=== PATIENT | female | born 1995 | race Caucasian/White ===

== ENCOUNTER 2017-11-30 06:05 | Inpatient (IN) ==
--- OUTSIDE RECORDS SUMMARY | 2017-11-30 06:14 | External Medical Summary | Continuity of Care Document ---
:1995 Author Organization [facility] Address [address] [place], [place] [id number] Phone Care Team Providers Name Role Phone Ander Mitchell MD Unavailable Unavailable Allergies, Adverse Reactions, Alerts Substance Reaction Severity Status No Known Drug Allergies Unknown Active Medications Medication Instructions Dosage Effective Dates Status Comments (start - stop) Fioricet 50 mg-300 take 1 - 2 capsule Not Available - Active mg-40 mg capsule by oral route every 4 hours as needed not to exceed 6 capsules per 24hrs Problems Condition Effective Dates (start - stop) Clinical Status Encounter for suprvsn of normal - , second trimester 26 weeks gestation of - Maternal care for excess growth, - second tri, unsp Encounter for suprvsn of normal - , second trimester 15 weeks gestation of - Maternal care for excess growth, - second tri, unsp 18 weeks gestation of - Abnormal glucose complicating - 28 weeks gestation of - Encounter for suprvsn of normal - , second trimester 22 weeks gestation of - Encounter for suprvsn of normal - , second trimester 18 weeks gestation of - Migraines Active Procedures Procedure Date Immuniz admnin, 1 vac, sngl/combo 19 Yrs + Flu Vaccine - Quadrivalent OB Visit No Charge Results Test Name Date and Time Measure Units Reference Range Abnormal Flag Comments Panel Description: Glucose [Mass/volume] in Serum or Plasma --1 hour post 50 g glucose PO GLUCOSE, 164 mg/dL <140 H One hour value of > GESTATIONAL SCREEN 15:42:00 tq=300 mg/dL indicatesthe (50G)-140 CUTOFF need for a diagnostic 75 g dose 2-hour or100 g dose 3-hour oral glucose tolerance test;patient fasting is required.Test performed at [facility] [address] [id number]: MANFRED ARANGO DO,MPH Panel Description: HEMOGLOBIN + HEMATOCRIT HEMOGLOBIN 15:42:00 11.7 g/dL 11.7-15.5 N HEMATOCRIT 15:42:00 34.5 % 35.0-45.0 L REPORT COMMENT:FASTING :NOTest performed at [facility] [address] [id number]: MANFRED ARANGO DO,MPH Advance Directives Directive Yes / No Effective Date File Name Unknown Encounters Encounter Practice Location Reason(s) Diagnoses Date Provider Care Team Description For Visit Members Katie Benitez Abnormal Oct-2 Hutton Referring In Womens glucose 6-201 Krista. Provider: Elisha IBARRA, complicating 7 [address], [place], weeks Center 700 [id number], gestation of Inocente Watt [facility] 120, Center tel: Emmanuel [facility] 120, [address] [place], [id number] [place], , [place]. [id number]. tel: tel: [phone] Katie Benitez Encounter for Oct-1 Hutton Referring In Womens suprvsn of 0-201 Krista. Provider: Elisha IBARRA, normal 7 [address], , [place], second Center 700 [id number], [email or web address] Inocente Watt weeks 120, Center tel:21 gestation of Emmanuel [facility] 120, [address] Emmanuel [place], [id number] [place], , [place]. [id number]. tel: tel: [phone] Katie Benitez Encounter for Jul- Hutton Referring In Womens suprvsn of 4-201 Krista. Provider: Elisha IBARRA, normal 7 [address], , [place], second Center 700 [id number], [email or web address] Inocente Watt weeks 120, Center tel: gestation of Emmanuel [facility] 120, [address] Emmanuel [place], [id number] [place], , [place]. [id number]. tel: tel:[phone] Katie Benitez Encounter for Jun- Hutton Referring In Womens suprvsn of 7-201 Krista. Provider: Elisha IBARRA normal 7 [address], , [place], second Center 700 [id number], [email or web address] Inocente Watt [facility] weeks 120, Center tel: gestation of Emmanuel [facility] 120, [address] Emmanuel [place], [id number] [place], , [place] [id number]. tel: tel:[phone] Katie Benitez Maternal care Jun- Hutton Referring In Womens Ultrasound for excess 7-201 Krista. Provider: Elisha IBARRA, growth, 7 [address], second tri, [place], unsp18 weeks Center 700 [id number], gestation of Inocente Watt 120, Center tel: Emmanuel [facility] 120, [address] Emmanuel [place], [id number] [place], , [place]. [id number]. tel: tel:[phone] Katie Benitez Maternal care May- Hutton Referring In Womens for excess 5-201 Krista. Provider: Elisha IBARRA, growth, 7 [address], second tri, [place], unspEncounter Center [id number], for suprvsn of Inocente Watt normal 120, Center tel: , Emmanuel [facility] 120, [address] second Emmanuel [place], [email or web address] [id number] [place], weeks , [place] [id number]. gestation of tel: tel: [phone] Family History Family Member Diagnosis Age At Onset No family history of Lung Disease No family history of Hypertension No family history of Ovarian Cancer No family history of Diabetes No family history of Pulmonary Embolism No family history of Stroke No family history of Venous Thrombosis No family history of Cardiovascular Disease No family history of Osteoporosis No family history of Breast Cancer No family history of Epilepsy No family history of Colon Cancer No family history of Thyroid Disorder No family history of Kidney Disease Immunizations Vaccine Date Status Comments Influenza, injectable, completed Source: New Immunization Record quadrivalent, preservative free, 3 yrs or older Payers Payer name Insurance type Covered democrat ID Authorization(s) [facility] [id number] [employer] [place] [employer] - Medicaid [place] [id number] [facility] [id number] [employer] [place] [employer] - Medicaid [place] [id number] Social History Type Description Quantity Date Captured Alcohol Use Details No Caffeine Use Details Unknown Tobacco Use Status Smoking Status Former smoker Vital Signs Date / Height Weight BMI Pulse Blood Temperature Respiratory Body Head BMI Time: Rate Pressure Rate Surface Circumference percentile Area 1 2:44 kg/m PM eter (2) 156.70 28.6 127/65 -2017 lbs 6 mm[Hg] 2:59 kg/m PM eter (2) Chief Complaint And Reason For Visit Unknown Chief Complaint And Reason For Visit Reason For Referral Reason For Referral Unknown Plan Of Care Date Type Action Status Appointment Nathalie Arango BOOKED Future Order: Radiology Order Complete OB Ultrasound > 14 Ordered Weeks ([id number]) Date Type Problem Goal Intervention Status Start Date Unknown. History Of Present Illness Encounter Date Complaint History Of Present Illness This patient has no known history of present illness Functional Status Encounter Date Functional Assessment Cognitive Assessment Unknown Medications Administered Medication Instructions Dosage Effective Dates (start - stop) Status Comments Drug Treatment Unknown Instructions Date Instruction Additional Information gestational glucose lab screening
--- OUTSIDE RECORDS SUMMARY | 2017-11-30 06:14 | External Medical Summary | Continuity of Care Document ---
:1995 Author Organization [facility] Address [address] [place], [place] [id number] Phone Care Team Providers Name Role Phone [...] second trimester 22 weeks gestation of - Maternal care for excess growth, - second tri, unsp Encounter for suprvsn of normal - , second trimester 15 weeks gestation of - Maternal care for excess growth, - second tri, unsp 18 weeks gestation of - Encounter for suprvsn of normal - , second trimester 18 weeks gestation of - Migraines Active Procedures Procedure Date OB Visit No Charge Results Test Name Date and Time Measure Units Reference Range Abnormal Flag Comments Unknown Advance Directives Directive Yes / No Effective Date File Name Unknown Encounters Encounter Practice Location Reason(s) Diagnoses Date Provider Care Team Description For Visit Members Associates [facility] Encounter for Hutton Referring In [facility] suprvsn of 4-201 Krista. Provider: Health FRED, normal 7 [address], , Medical Rolando [place], [place], second Center [phone], [email or web address] Inocente Watt weeks 120, Center tel: gestation of Emmanuel [facility] 120, [address] [place], [id number] [place], , [place]. [id number]. tel: tel:[phone] Katie Benitez Encounter for Jun- H[place] Referring In Womens suprvsn of 7-201 Krista. Provider: Health FRED, normal 7 [address], , [place], second Center 700 [id number], [email or web address] Inocente Watt [facility] weeks 120, Center tel: gestation of Emmanuel [facility] 120, [address] [place], [id number] [place], , [place] [id number]. tel: tel: [phone] Katie Benitez Maternal care Jun- Hutton Referring In Womens Ultrasound for excess 7-201 Krista. Provider: Health FRED, growth, 7 [address], second tri, [place], unsp18 weeks Center 700 [id number], gestation of Inocente Watt 120, Center tel: Emmanuel [facility] 120, [address] Emmanuel [place], [id number] [place], , [place]. [id number]. tel: tel:[phone] Katie Benitez Maternal care May-2 Hutton Referring In Womens for excess 5-201 Krista. Provider: Health FRED, growth, 7 [address], second tri, [place], unspEncounter Center 700 [phone], for suprvsn of Inocente Watt normal 120, Center tel: , Inocente Benitez 120, [address] second Emmanuel [place], [email or web address] [id number] [place], weeks , [place]. [id number]. gestation of tel: tel:[phone] Family History Family Member Diagnosis Age At [...] Kidney Disease Immunizations Vaccine Date Status Comments Unknown Payers Payer name Insurance type Covered green party ID Authorization(s) [facility] [place] [id number] Social History Type Description Quantity Date Captured Alcohol Use Details No Caffeine Use Details Unknown Tobacco Use Status Smoking Status Former smoker Vital Signs Date / Height Weight BMI Pulse Blood Temperature Respiratory Body Head BMI Time: Rate Pressure Rate Surface Circumference percentile Area 149.90 27.4 118/71 -2017 lbs 1 mm[Hg] 11:37 kg/m AM eter (2) .0 6 11:32 kg/m AM eter (2) Chief Complaint And Reason For Visit Unknown Chief Complaint And Reason For Visit Reason For Referral Reason For Referral Unknown Plan Of Care Date Type Action Status Appointment Nathalie Arango BOOKED Future Order: Radiology Order Complete OB Ultrasound > 14 Ordered Weeks ([id number]) Date Type Problem Goal Intervention Status Start Date Unknown. History Of Present Illness Encounter Date Complaint History Of Present Illness This patient has no known history of present illness Functional Status Encounter Date Functional Assessment Cognitive Assessment Unknown Medications Administered Medication Instructions Dosage Effective Dates (start - stop) Status Comments Drug Treatment Unknown Instructions Date Instruction Additional Information Unknown
--- OUTSIDE RECORDS SUMMARY | 2017-11-30 06:14 | External Medical Summary | Continuity of Care Document ---
:1995 Author Organization [facility] Address [address] [place], [place] [id number] Phone Care Team Providers Name Role Phone [...] Effective Dates (start - stop) Clinical Status Maternal care for excess growth, - second tri, unsp 18 weeks gestation of - Maternal care for excess growth, - second tri, unsp Encounter for suprvsn of normal - , second trimester 15 weeks gestation of - Encounter for suprvsn of normal - , second trimester 18 weeks gestation of - Migraines Active Procedures Procedure Date Ultrasound exam of preg uterus, complete Results Test Name Date and Time Measure Units Reference Range Abnormal Flag Comments Unknown Advance Directives Directive Yes / No Effective Date File Name Unknown Encounters Encounter Practice Location Reason(s) Diagnoses Date Provider Care Team Description For Visit Members Katie Benitez Encounter for Hutton Referring In [facility] suprvsn of 7-201 Krista. Provider: Health [place], normal 7 [address], , Medical [place], [facility] Center [id number], [email or web address] Dr Inoc[facility] Medical [place] weeks 120, Center tel: gestation of Emmanuel [facility] 120, [address] [place], Emmanuel, [id number] [place], , [place]. [id number]. tel: tel: [phone] Katie Benitez Maternal care [place] Referring In Womens Ultrasound for excess 7-201 Krista. Provider: Health FRED, growth, 7 [address], second [facility], [place], unsp18 weeks Center 700 [id number], gestation of Dr [facility] 120, Center tel: Emmanuel [facility] 120, [address] [place], [place], [id number] [place], , [place]. [id number]. tel: tel: [phone] Katie Benitez Maternal care [place] Referring In Womens for excess 5-201 Krista. Provider: Health FRED, growth, 7 [address], second tri, [place], unspEncounter Center [address] [id number], for suprvsn of Dr [facility] normal 120, Center tel: , Emmanuel Inocente 120, [address] second Emmanuel [place], [email or web address] [id number] [place], weeks , [place]. [id number]. gestation of tel: tel: [phone] Family History Family Member Diagnosis Age At [...] Insurance type Covered green party ID Authorization(s) KATIUSKA WILEY [id number] Social History Type Description Quantity Date Captured Unknown Vital Signs Date / Height Weight BMI Pulse Blood Temperature Respiratory Body Head BMI Time: Rate Pressure Rate Surface Circumference percentile Area Unknown Chief Complaint And Reason For Visit Unknown Chief Complaint And Reason For Visit Reason For Referral Reason For Referral Unknown Plan Of Care Date Type Action Status Appointment Nathalie Arango BOOKED Future Order: Radiology Order Complete OB Ultrasound > 14 Ordered Weeks ([id number]) Date Type Problem Goal Intervention Status Start [...]
--- OUTSIDE RECORDS SUMMARY | 2017-11-30 06:14 | External Medical Summary | Summary of Care ---
:1995 Author Name Chuy SHAW [facility] Address [address] Unavailable [place], [place] [address] Care Team Providers Name Role Phone Ander Mitchell Primary Care Provider Unavailable Unavailable Unavailable Unavailable Functional Status Functional Status Health Issues Name Dates Details Functional status health issues are not documented Status: Cognitive Status Health Issues Name Dates Details Cognitive status health issues are not documented Status: Problems Name Dates Details Allergic rhinitis (477.9, J30.9) Status: Active Bronchitis (490, J40) Status: Active Dermatofibroma (216.9, D23.9) Status: Active 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, 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 Visit for gynecologic examination (V72.31, Z01.419) Status: Active Screening examination for venereal disease (V74.5, Z11.3) Status: Active Nausea with vomiting (787.01, R11.2) Status: Active Headache (784.0, R51) Status: Active Viral syndrome (079.99, B34.9) Status: Active Herpes simplex (054.9, B00.9) Status: Active Dysuria (788.1, R30.0) Status: Active Aphthous ulcer (528.2, K12.0) Status: Active Medications Name Dates Details Mirena IUD Refills: 0 Active Allergies and Adverse Reactions Name Dates Details No Known Drug Allergies Status: Active Past Medical History Name Dates Details History of Supervision of normal (V22.1, Z34.90) Status: Resolved Procedures Procedure Dates Details History of Obstetrical Surgery Completed: Procedures not documented Immunization Name Dates Details OPV Administered on:1993 DTP Administered on:1993 HIB Administered on:1993 HIB Administered on:1993 DTP Administered on:1993 OPV Administered on:1993 OPV Administered on:30-Aug-1996 DTP Administered on:30-Aug-1996 HIB Administered on:30-Aug-1996 Hepatitis B Administered on:30-Aug-1996 MMR Administered on:30-Aug-1996 Hepatitis B Administered on: DTaP Administered on: DTaP Administered on:15-Dec-1997 OPV Administered on:15-Dec-1997 Hepatitis B Administered on:15-Dec-1997 MMR Administered on:15-Dec-1997 HPV (Gardasil) Administered on:21-Mar-2008 HPV (Gardasil) Administered on: Tdap (Adacel) Administered on: HPV (Gardasil) Administered on:16-Nov-2008 Influenza Administered on:28-Sep-2012 Lot #: [id number] Tdap (Adacel) Administered on:14-Feb-2013 Lot #: [id number] Social History Name Dates Details Smoking StatusUnknown if ever smoked Vital Signs Date Test Result Details 13-Feb-2016 11:56 BP Systolic 116 mm[Hg] Status: BP Diastolic 54 mm[Hg] Status: Temperature 98.1 f Status: Heart Rate 82 /min Status: O2 SAT 98 % Status: Results Date Description Value Details Results not documented Plan of Care Planned Observations Name Dates Details Planned Goals not documented Goal Instructions Instructions not documented Encounters Appointment; Geneva Vera On 13-Feb-2016 Encounter Diagnosis: Problem not documented 11:40 Appointment; Ander Mitchell On Encounter Diagnosis: Problem not documented 09:30 Appointment; Sander Madden On Encounter Diagnosis: Problem not documented 09:45 Appointment; Ander Mitchell On 13-Sep-2014 Encounter Diagnosis: Problem not documented 11:45 Appointment; Yi Conrad On Encounter Diagnosis: Problem not documented 13:00 Appointment; Ander Mitchell On 12-Apr-2014 Encounter Diagnosis: Problem not documented 16:00
--- OUTSIDE RECORDS SUMMARY | 2017-11-30 06:14 | External Medical Summary | Summary of Care ---
:1995 Author Name Nikole Boland DPM Address [address] [place], [place] [address] Care Team Providers Name Role Phone Richardjack TIMMONSNikole Unavailable Unavailable Tiarra Whyte APRN Unavailable Unavailable Sebastián Mitchell M.D. 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 S Start 14-Jul-2016 Active Acyclovir 400 MG Oral Tablet TAKE 1 TABLET 3 TIMES DAILY. Quantity: 21 Refills: 0 Tiarra Whyte APRN Start 31-Jul-2016 End 07-Aug-2016 Active PredniSONE 20 MG Oral Tablet TAKE 2 TABLETS DAILY. Quantity: 10 Refills: 0 Tiarra Whyte APRN Start 31-Jul-2016 End 05-Aug-2016 Active Allergies and Adverse Reactions Name Dates Details No Known Drug Allergies (Allergy) Status: Active Past Medical History Name Dates Details History of acute sinusitis (V12.69, Z87.09) Status: Resolved History of bronchitis (V12.69, Z87.09) Status: Resolved History of Dysuria (788.1, R30.0) Status: Resolved History of headache (V13.89, Z87.898) Status: Resolved History of nausea and vomiting (V12.79, Z87.898) Status: Resolved History of oral aphthous ulcers (V12.79, Z87.19) Status: Resolved History of Screening examination for venereal disease (V74.5, Z11.3) Status : Resolved History of Supervision of normal (V22.1, Z34.90) Status: Resolved History of viral infection (V12.09, Z86.19) Status: Resolved History of Visit for gynecologic examination (V72.31, Z01.419) Status: Resolved Procedures Procedure Dates Details History of Obstetrical Surgery Completed: Procedures not documented Immunization Name Dates Details OPV on: 1993 DTP on: 1993 HIB on: 1993 HIB on: 1993 DTP on: 1993 OPV on: 1993 OPV on: 30-Aug-1996 DTP on: 30-Aug-1996 HIB on: 30-Aug-1996 Hepatitis B on: 30-Aug-1996 MMR on: 30-Aug-1996 Hepatitis B on: DTaP on: DTaP on: 15-Dec-1997 OPV on: 15-Dec-1997 Hepatitis B on: 15-Dec-1997 MMR on: 15-Dec-1997 HPV (Gardasil) on: 21-Mar-2008 HPV (Gardasil) on: Tdap (Adacel) on: HPV (Gardasil) on: 16-Nov-2008 Influenza on: 28-Sep-2012 Lot #: [id number] Tdap (Adacel) on: 14-Feb-2013 Lot #: [id number] Social History Name Dates Details - Status: Smoking Status Name Dates Details Never smoker Vital Signs Date Test Result Details 31-Jul-2016 12:02 BP Systolic 107 mm[Hg] Status: Comments: Location: ; Position: BP Diastolic 53 mm[Hg] Status: Comments: Location: ; Position: Temperature 97.9 f Status: Heart Rate 52 /min Status: Comments: Location: ; Physical Findings 98 Status: Comments: O2 Saturation 14-Jul-2016 14:19 BP Systolic 112 mm[Hg] Status: Comments: Location: ; Position: BP Diastolic 64 mm[Hg] Status: Comments: Location: ; Position: Heart Rate 74 /min Status: Comments: Location: ; Weight 134 lb Status: Results Date Description Value Details 14-Jul-2016 15:05 XRay ANKLE-Left Comments: Exam Date: 2016 14: 48Dictation Date: 2016 15:05 X ANKLE COMP (MIN 3V) LT 15:21 XRay FOOT-Left Comments: Exam Date: 2016 14:48Dictation Date: 15:21 X FOOT COMP (MIN 3V) LT 31-Jul-2016 12:51 XRay FOOT-Left Comments: Exam Date: 07/31/2016 11: 24Dictation Date: 07/31/2016 12:51 X FOOT COMP (MIN 3V) LT Plan of Care Name Dates Details Planned Observations Planned Goals not documented Planned Encounters Appointment; Provider: Pee Garcia M.D. On 17-Jul-2017 08:30 Interventions Provided Labs/Procedures/ImagingXRay FOOT-Left; Done: Jul 31 2016 12:51PM Instructions Name Dates Details Instructions not documented Encounters Appointment; Ander Mitchell M.D. On 14-Jul-2016 Encounter Diagnosis: Problem not documented 14:00 Appointment; Geneva Vera A.P.R.N. On 13-Feb-2016 Encounter Diagnosis: Problem not documented 11:40 Appointment; Ander Mitchell M.D. On Encounter Diagnosis: Problem not documented 09:30 Appointment; Sander Madden M.D. On Encounter Diagnosis: Problem not documented 09:45 Appointment; Ander Mitchell M.D. On 13-Sep-2014 Encounter Diagnosis: Problem not documented 11:45
--- OUTSIDE RECORDS SUMMARY | 2017-11-30 06:14 | External Medical Summary | Summary of Care ---
:1995 Author Name Sebastián Mitchell M.D. 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 S Start 14-Jul-2016 Active Allergies and Adverse Reactions Name Dates [...] on: 16-Nov-2008 Influenza on: 28-Sep-2012 Lot #: [id number] Tdap (Adacel) on: 14-Feb-2013 Lot #: [id number] Social History Name Dates Details - Status: Smoking Status Name Dates Details Never smoker Vital Signs Date Test Result Details 14-Jul-2016 14:19 BP Systolic 112 mm[Hg] Status: [...] 15:21 X FOOT COMP (MIN 3V) LT Plan of Care Name Dates Details Planned Observations Planned Goals not documented Planned Encounters Appointment; Provider: Pee Garcia M.D. On 17-Jul-2017 08:30 Interventions Provided Medication ChangesNabumetone 500 MG Oral Tablet - StartSulfamethoxazole- Trimethoprim 800-160 MG Oral Tablet - CompletedLabs/Procedures/ImagingXRay ANKLE -Left; Done: 2016 3:05PMXRay FOOT-Left; Done: 2016 3:21PM Instructions Name Dates Details Instructions not documented Encounters Appointment; Geneva Vera A.P.R.N. On 13-Feb-2016 Encounter Diagnosis: Problem not documented 11:40 Appointment; Ander Mitchell M.D. On Encounter Diagnosis: Problem not documented 09:30 Appointment; Sander Madden M.D. On Encounter Diagnosis: Problem not documented 09:45 Appointment; Ander Mitchell M.D. On 13-Sep-2014 Encounter Diagnosis: Problem not documented 11:45
[2017-11-30] MEDS ORDERED: CALCIUM CARBONATE Chewable 500mg TABLET PO PRN ×2 (06:15→08:19)
[2017-11-30] MEDS ORDERED: METHYLERGONOVINE 0.2 MG/ML INJECTION IM PRN (06:15)
[2017-11-30] MEDS ORDERED: MAG-AL + SIM ORAL LIQUID 30ml PO PRN ×2 (06:15→08:19)
[2017-11-30] MEDS ORDERED: LR 1,000 ML IV PRN (06:15)
[2017-11-30] MEDS ORDERED: ACETAMINOPHEN 500 MG TABLET PO PRN ×2 (06:15→08:19)
[2017-11-30] MEDS ORDERED: CARBOPROST 250 MCG/ML INJECTION IM PRN (06:15)
[2017-11-30] MEDS ORDERED: LIDOCAINE 1% (10mg/ml) 2mL INJ PF SDV ID PRN (06:15)
--- OUTSIDE RECORDS SUMMARY | 2017-11-30 06:15 | External Medical Summary | Summary of Care ---
:1995 Author Name Geneva Vera APRN Address [address] Unavailable [place], [place] [id number] Care Team Providers Name Role Phone Geneva Vera APRN Unavailable Unavailable Ander Mitchell Primary Care Provider Unavailable Unavailable [...] Active Aphthous ulcer (528.2, K12.0) Status: Active Acute sinusitis (461.9, J01.90) Status: Active Medications Name Dates Details Mirena IUD Refills: 0 ActiveSulfamethoxazole-Trimethoprim 800-160 MG Oral Tablet TAKE 1 TABLET TWICE DAILY UNTIL FINISHED. Quantity: 20 Refills: 0 Karon Verafer VALERIA Started 14-Feb-2016 Active Allergies and Adverse Reactions Name Dates [...] Administered on:16-Nov-2008 Influenza Administered on:28-Sep-2012 Lot #: [id number] Tdap (Adacel) Administered on:14-Feb-2013 Lot #: [id number] Social History Name Dates Details Smoking StatusUnknown [...]
--- OUTSIDE RECORDS SUMMARY | 2017-11-30 06:15 | External Medical Summary | Summary of Care ---
:1995 Author Name Geneva Vera APRN Address [address] Unavailable [place], [place] [id number] Care Team Providers Name Role Phone Geneva [...] DAILY UNTIL FINISHED. Quantity: 20 Refills: 0 Chuy Geneva VALERIA Started 14-Feb-2016 Active Allergies and Adverse [...] Administered on:16-Nov-2008 Influenza Administered on:28-Sep-2012 Lot #: [id number] Tdap (Adacel) Administered on:14-Feb-2013 Lot #: [id number] Social History Name Dates Details Smoking StatusUnknown [...]
--- OUTSIDE RECORDS SUMMARY | 2017-11-30 06:15 | External Medical Summary | Continuity of Care Document ---
:1995 Author Organization [facility] Address [address] [place], [place] [address] Phone Care Team Providers Name Role Phone Ander Mitchell MD Unavailable Unavailable Allergies, Adverse Reactions, Alerts Substance Reaction Severity Status No Known Drug Allergies Unknown Active Medications Medication Instructions Dosage Effective Dates Status Comments (start - stop) 28 mg take 1 tablet by Not Available - Active iron-800 mcg oral route every tablet day Problems Condition Effective Dates (start - stop) Clinical Status Encounter for suprvsn of normal - , third trimester 34 weeks gestation of - Encounter for suprvsn of normal - , third trimester 30 weeks gestation of - Oth related conditions, - third trimester 32 weeks gestation of - Maternal care for excess growth, - second tri, unsp 18 weeks gestation of - Maternal care for excess growth, - second tri, unsp Encounter for suprvsn of normal - , second trimester 15 weeks gestation of - Abnormal glucose complicating - 28 weeks gestation of - Encounter for suprvsn of normal - , second trimester 26 weeks gestation of - Encounter for suprvsn of normal - , second trimester 22 weeks gestation of - Encounter for suprvsn of normal - , second trimester 18 weeks gestation of - Encounter for suprvsn of normal - , third trimester Encounter For Screening For - Streptococcus B 36 weeks gestation of - Migraines Active Procedures Procedure Date OB Visit No Charge Results Test Name Date and Time Measure Units Reference Range Abnormal Flag Comments Unknown Advance Directives Directive Yes / No Effective Date File Name Unknown Encounters Encounter Practice Location Reason(s) Diagnoses Date Provider Care Team Description For Visit Members Katie Benitez Encounter for Dec- [place] Referring In Womens suprvsn of normal 9-201 Krista. Provider: Elisha IBARRA, , third 7 [address] trimesterEncounte Liliana Lewis, 1522, r For Center [address] [place] [address], Screening For [facility] Liliana [place], Streptococcus B36 120, [place] [id number], weeks gestation Emmanuel [facility] 120, [place] of [place], tel:[phone] [place], , [place]. [id number]. tel: tel:[phone] Katie Benitez Encounter for Dec-0 [place] Referring In Womens suprvsn of normal 5-201 Krista. Provider: Elisha IBARRA, , third 7 [address] [email or web address] weeks Liliana Lewis, 1522, gestation of Center [address] [place] [address], [facility], 120, [place] [id number], Emmanuel [facility] 120, [place], tel:[phone] [place], , [place]. [id number]. tel: tel:[phone] Katie Benitez Oth Nov-2 [place] Referring In Womens related 1-201 Krista. Provider: Elisha IBARRA, conditions, third 7 [address] [email or web address] weeks Liliana Lewis, 1522, gestation of Center [address] [place] [address], In[place]ente Watt [place], 120, [place] [id number], Emmanuel [facility] 120, [place], tel:[phone] [place], , [place]. [id number]. tel: tel:[phone] Katie Benitez Encounter for Nov-0 [place] Referring In Womens suprvsn of normal 7-201 Krista. Provider: Elisha IBARRA, , third 7 [address] [email or web address] weeks Medical Rolando Lewis, 1522, gestation of Center [address] [place] [address], , [facility] [place], 120, Center [id number], Emmanuel, [facility] 120, [place], tel:[phone] [place], , [place]. [id number]. tel: tel:[phone] Benitez Abnormal glucose Oct-2 [place] Referring In Womens complicating 6-201 Krista. Provider: Elisha IBARRA, weeks 7 [address] PO Box gestation of Medical Rolando Lewis, 1522, Center [facility] [place], , [facility], 120, [place] [id number], Emmanuel, [facility] 120, [place], tel:[phone] [place], , [place]. [id number]. tel: tel:[phone] Benitez Encounter for Oct-1 [place] Referring In Womens suprvsn of normal 0-201 Krista. Provider: Elisha IBARRA, , second 7 [address] [email or web address] weeks Liliana Lewis, 1522, gestation of Center [facility] [place], , [facility], 120, Center [id number], Emmanuel [facility] 120, [place], tel:[phone] [place], , [place]. [id number]. tel: tel:[phone] Benitez Encounter for Sep-1 [place] Referring In Womens suprvsn of normal 4-201 Krista. Provider: Elisha IBARRA, , second 7 700 [address] [email or web address] weeks Liliana Lewis, 1522, gestation of Center [address] [place] [address], , [facility], 120, [place] [id number], Emmanuel, [facility] 120, [place], tel:[phone] [place], , [place]. [id number]. tel: tel:[phone] Benitez Encounter for Aug-1 [place] Referring In Womens suprvsn of normal 7-201 Krista. Provider: Health FRED, , second 7 [address] [email or web address] weeks Liliana Lewis, 1522, gestation of Center [address] [place] [address], Dr [facility] [place], 120, [place] [id number], [facility] 120, [place], tel:+ [phone] [place], [address] , [place]. [id number]. tel: tel:[phone] Katie Benitez Maternal care for [place] Referring In Womens Ultrasound excess 7-201 Krista. Provider: lEisha IBARRA, growth, second 7 [address] tri, [email or web address] weeks Liliana Lewis, 1522, gestation of Center [address] [place] [address], In[place]ente Watt [place], 120, [place] [id number], [facility] 120, [place], tel:+ [phone] [facility] [address] , [place]. [id number]. tel: tel:[phone] Katie Benitez Maternal care for [place] Referring In Womens excess 5-201 Krista. Provider: Health FRED, growth, second 7 [address] tri, Liliana Lewis, 1522, unspEncounter for [address], [facility] normal Inocente Watt, , second 120, [place] [id number], [email or web address] weeks [facility] 120, [place] gestation of Emmanuel [place], tel:+ [phone] [place], [address] , [place]. [id number]. tel: tel:[phone] Family History Family Member Diagnosis Age At [...] Kidney Disease Immunizations Vaccine Date Status Comments Tdap completed Source: New Immunization Record Influenza, injectable, completed Source: New Immunization Record quadrivalent, preservative free, 3 yrs or older Payers Payer name Insurance type Covered libertarian ID Authorization(s) [facility] [id number] [employer] [place] [id number] [facility] [id number] [employer] [place] [id number] [facility] [id number] [employer] [place] Medicaid [place] [id number] Social History Type Description Quantity Date Captured Alcohol Use Details No Caffeine Use Details Unknown Tobacco Use Status Smoking Status Former smoker Vital Signs Date / Height Weight BMI Pulse Blood Temperature Respiratory Body Head BMI Time: Rate Pressure Rate Surface Circumference percentile Area 29.8 5 3:13 kg/m PM eter (2) 165.50 30.2 109/71 2017 lbs 7 mm[Hg] 3:18 kg/m PM eter (2) Chief Complaint And Reason For Visit Unknown Chief Complaint And Reason For Visit Reason For Referral Reason For Referral Unknown Plan Of Care Date Type Action Status Appointment Nathalie Arango BOOKED Future Order: Radiology Order Complete OB Ultrasound > 14 Ordered Weeks ([id number]) Date Type Problem Goal Intervention Status Start [...]
--- OUTSIDE RECORDS SUMMARY | 2017-11-30 06:15 | External Medical Summary | Summary of Care ---
:1995 Author Name Tiarra Whyte APRN Address [address] Unavailable [place], [place] [id number] Care Team Providers Name Role Phone Isabell SHAWTiarra Unavailable Unavailable Sebastián Mitchell M.D. 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 Start 14-Jul-2016 Active Acyclovir 400 MG Oral Tablet TAKE 1 TABLET 3 TIMES DAILY. Quantity: 21 Refills: 0 Tiarra Whyte APRN Start 31-Jul-2016 End 07-Aug-2016 Active PredniSONE 20 MG Oral Tablet TAKE 2 TABLETS DAILY. Quantity: 10 Refills: 0 Isabell SHAW Tiarra Start 31-Jul-2016 End 05-Aug-2016 Active Allergies and [...] Dates Details History of Obstetrical Surgery Completed: XRay FOOT-Left Ordered: 31-Jul-2016 Immunization Name Dates Details OPV on: 1995 [...] on: 16-Nov-2008 Influenza on: 28-Sep-2012 Lot #: [id number] Tdap (Adacel) on: 14-Feb-2013 Lot #: [id number] Social History Name Dates Details - Status: [...] M.D. On 17-Jul-2017 08:30 Interventions Provided Medication ChangesAcyclovir 400 MG Oral Tablet - StartPredniSONE 20 MG Oral Tablet - Start Instructions Name Dates Details Instructions not documented Encounters Appointment; Nikole Boland DPM On 31-Jul-2016 Encounter Diagnosis: Problem not documented 10:30 Appointment; Ander Mitchell M.D. On 14-Jul-2016 Encounter [...]
--- OUTSIDE RECORDS SUMMARY | 2017-11-30 06:15 | External Medical Summary | Continuity of Care Document ---
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 Provider: Elisha IBARRA, complicating 7 [address], [email or web address] Medical [place], weeks Center 700 [id number], gestation of Inocente aWtt 120, Center tel: Emmanuel [facility] 120, [address] Emmanuel [place], [id number] [place], , [place]. [id number]. tel: tel:[phone] Katie Benitez Encounter for Oct-1 [place] Referring In [facility]-201 Krista. Provider: Elisha IBARRA normal 7 [address], , Car[place], second Center 700 [id number], [email or web address] Dr [facility] weeks 120, Center tel: gestation of Emmanuel [facility] 120, [address] Emmanuel [place], [id number] [place], , [place]. [id number]. tel: tel:[phone] Katie Benitez Encounter for Sep-1 [place] Referring In Womens suprvsn of 4-201 Krista. Provider: Elisha IBARRA, normal 7 [address], , [place], second Center 700 [id number], [email or web address] Dr [facility] weeks 120, Center tel: gestation of Emmanuel [facility] 120, [address] Emmanuel [place] [id number] [place], , [place]. [id number]. tel: tel:[phone] Katie Benitez Encounter for Aug-1 [place] Referring In Womens suprn of 7-201 Krista. Provider: Elisha IBARRA, normal 7 [address], , [place], second Center 700 [id number], [email or web address] Inocente Watt weeks 120, Center tel: gestation of Emmanuel [facility] 120, [address] Emmanuel [place] [id number] [place], , [place]. [id number]. tel: tel: [phone] Katie Benitez Maternal care [place] Referring In Womens Ultrasound for excess 7-201 Krista. Provider: Elisha IBARRA, growth, 7 [address], second tri, Carina [place], [email or web address] weeks Center 700 [id number], gestation of Dr [facility] 120, Center tel: Benitez, [facility] 120, [address] [place], [id number] [place], , [place]. [id number]. tel: tel: [phone] Katie Benitez Maternal care [place] Referring In Womens for excess 5-201 Krista. Provider: Elisha IBARRA, growth, 7 [address], second tri, [place], unspEncounter Center 700 [id number], for suprvsn of Inocente Watt [facility] normal 120, Center tel: , Emmanuel, [facility] 120, [address] second Emmanuel [place], [email or web address] [id number] [place], weeks , [place]. [id number]. gestation of tel: tel: [phone] Family History Family Member Diagnosis Age At [...] older Payers Payer name Insurance type Covered republican ID Authorization(s) [facility] [id number] [employer] - Medicaid [place] [id number] [facility] [id number] [employer] [place] Medicaid [place] [id number] Social History Type Description Quantity Date Captured Alcohol Use Details No Caffeine Use Details coffee occasionaly per day Tobacco Use Status Smoking Status Former smoker Smoking Tobacco Use Cigarette: No Details Available Cigarette: No Details Available Details Vital Signs Date / Height Weight BMI Pulse Blood Temperature Respiratory Body Head BMI Time: Rate Pressure Rate Surface Circumference percentile Area 140.70 25.7 113/2017 lbs 3 mm[Hg] 3:58 kg/m PM eter (2) Chief Complaint And Reason For Visit Unknown Chief Complaint And Reason For Visit Reason For Referral Reason For Referral Unknown Plan Of Care Date Type Action Status Appointment Nathalie Arango BOOKED Future Order: Radiology Order Complete OB Ultrasound > 14 Ordered Weeks ([id number]) Date Type Problem Goal Intervention Status Start [...]
--- OUTSIDE RECORDS SUMMARY | 2017-11-30 06:15 | External Medical Summary | Continuity of Care Document ---
:1995 Author Organization [facility] Address [address] [place], [place] [phone] Phone Care Team Providers Name Role Phone [...] not to exceed 6 capsules per 24hrs 28 mg take 1 tablet by Not Available - Active iron-800 mcg oral route every tablet day Problems Condition Effective Dates (start - stop) Clinical Status Oth related conditions, - third trimester 32 weeks gestation of - Maternal care for excess growth, - second tri, unsp Encounter for suprvsn of normal - , second trimester 15 weeks gestation of - Encounter for suprvsn of normal - , third trimester 30 weeks gestation of - Maternal care for [...] third trimester 34 weeks gestation of - Migraines Active Procedures Procedure Date OB Visit No Charge Results Test Name Date and Time Measure Units Reference Range Abnormal Flag Comments Unknown Advance Directives Directive Yes / No Effective Date File Name Unknown Encounters Encounter Practice Location Reason(s) Diagnoses Date Provider Care Team Description For Visit Members Katie Benitez Encounter for Oct- [place] Referring In Womens suprvsn of 5-201 Krista. Provider: Health [place], normal 7 [address], , Medical Car[place], [facility] Center 700 [id number], [email or web address] [facility] weeks 120, [place] tel:+ gestation of [facility] 120, [address] Emmanuel [place], [id number] [place], , [place]. [id number]. tel: tel:[phone] Katie Benitez Oth Nov-2 [place] Referring In Womens related 1-201 Krista. Provider: Health [place], conditions, 7 [address], third Medical Carnia [place], [email or web address] Center 700 [id number], weeks [facility] gestation of 120, [place] tel:+ [facility] 120, [address] [place], [place], [id number] [place], , [place]. [id number]. tel: tel:[phone] Katie Benitez Encounter for Sep-0 [place] Referring In Womens suprvsn of 7-201 Krista. Provider: Health [place], normal 7 [address], , Carina [place], third Center 700 [id number], [email or web address] [facility] weeks 120, [place] tel:+21 gestation of [facility] 120, [address] Emmanuel [place], [id number] [place], , [place]. [id number]. tel: tel:[phone] Katie Benitez Abnormal Oct-2 [place] Referring In Womens glucose 6-201 Krista. Provider: Health FRED, complicating 7 [address], [email or web address] Carina [place], weeks Center 700 [id number], gestation of Inocente Watt 120, Center tel:+ Emmanuel [facility] 120, [address] [place], Emmanuel, [id number] [place], , [place]. [id number]. tel: tel:[phone] Benitez Encounter for Oct-1 [place] Referring In Womens suprvsn of 0-201 Krista. Provider: Health [place], normal 7 [address], , [place], second Center 700 [id number], [email or web address] Inocente Watt weeks 120, Center tel:+ gestation of Emmanuel [facility] 120, [address] Emmanuel [place], [id number] [place], , [place]. [id number]. tel: tel:[phone] Benitez Encounter for Sep-1 [place] Referring In Womens suprvsn of 4-201 Krista. Provider: Health [place], normal 7 [address], , [place], second Center 700 [id number], [email or web address] Inocente Watt [facility] weeks 120, [place] tel:+ gestation of Emmanuel [facility] 120, [address] Emmanuel [place], [id number] [place], , [place]. [id number]. tel: tel:[phone] Benitez Encounter for Aug- [place] Referring In Womens suprvsn of 7-201 Krista. Provider: Health [place], normal 7 [address], , [place], second Center 700 [id number], [email or web address] Inocente Watt weeks 120, Center tel:+ gestation of Emmanuel [facility] 120, [address] Emmanuel [place], [id number] [place], , [place]. [id number]. tel: tel:[phone] Benitez Maternal care Aug-1 [place] Referring In Womens Ultrasound for excess 7-201 Krista. Provider: Elisha IBARRA, growth, 7 [address], second tri, [place], [email or web address] weeks Center 700 [id number], gestation of Inoc[facility] Watt [facility] 120, Center tel:21 Emmanuel, Inocente 120, [address] [place], [id number] [place], , [place]. [id number]. tel: tel: [phone] [facility] Emmanuel Maternal care May- [place] Referring In Womens for excess 5-201 Krista. Provider: Elisha IBARRA, growth, 7 [address], second tri, [place], unspEncounter Center 700 [id number], for suprvsn of Inocente Watt [facility] normal 120, Center tel: , Benitez, [facility] 120, [address] second [place], Emmanuel, [id number] [place], weeks , [place]. [id number]. gestation of tel: tel: [phone] Family History Family Member Diagnosis Age At [...] name Insurance type Covered democrat ID Authorization(s) [facility] [id number] [employer] - Medicaid [place] [id number] [facility] [id number] [employer] [place] [employer] - Medicaid [place] [id number] [facility] [id number] [employer] - Medicaid [place] [id number] Social History Type Description Quantity Date Captured Alcohol Use Details No Caffeine Use Details Unknown Tobacco Use Status Smoking Status Former smoker Vital Signs Date / Height Weight BMI Pulse Blood Temperature Respiratory Body Head BMI Time: Rate Pressure Rate Surface Circumference percentile Area 29.6 -2016 4 1:22 kg/m PM eter (2) 163.20 29.8 129/82 -2017 lbs 5 mm[Hg] 1:23 kg/m PM eter (2) Chief Complaint And Reason For Visit Unknown Chief Complaint And Reason For Visit Reason For Referral Reason For Referral Unknown Plan Of Care Date Type Action Status Appointment Nathalie Arango BOOKED Future Order: Radiology Order Complete OB Ultrasound > 14 Ordered Weeks ([id number]) Date Type Problem Goal Intervention Status Start [...]
--- OUTSIDE RECORDS SUMMARY | 2017-11-30 06:15 | External Medical Summary | Continuity of Care Document ---
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 Provider: Elisha IBARRA, growth, [address], second tri, Medical Carina Sharpe [place], unspEncounter Center 700 [id number], for suprvsn of Inocente Watt normal 120, Center tel:[phone] , Emmanuel, Inocente 120, [address] second Emmanuel [place], [id number] [place], weeks gestation , [place]. [id number]. of tel:+12-30 tel: [phone] Family History Family Member Diagnosis Age At [...] Unknown Payers Payer name Insurance type Covered constitution party ID Authorization(s) [facility] [id number] Social History Type Description Quantity Date Captured Alcohol Use Details No Caffeine Use Details coffee occasionaly per day Tobacco Use Status Smoking Status Former smoker Smoking Tobacco Use Cigarette: No Details Available Cigarette: No Details Available Details Vital Signs Date / Height Weight BMI Pulse Blood Temperature Respiratory Body Head BMI Time: Rate Pressure Rate Surface Circumference percentile Area 140.70 25.7 113/ lbs 3 mm[Hg] 3:58 kg/m PM eter (2) Chief Complaint And Reason For Visit Unknown Chief Complaint And Reason For Visit Reason For Referral Reason For Referral Unknown Plan Of Care Date Type Action Status Appointment Nathalie Arango BOOKED Appointment Nathalie Arango BOOKED Date Type Problem Goal Intervention Status Start [...]
--- OUTSIDE RECORDS SUMMARY | 2017-11-30 06:15 | External Medical Summary | Continuity of Care Document ---
:1993 Author Organization [facility] Address [address] [place], [place] [phone] Phone Care Team Providers Name Role Phone [...] second trimester 15 weeks gestation of - Oth related conditions, [...] admnin, 1 vac, sngl/combo 19 Yrs + TDAP VACCINE >7 IM OB Visit No Charge Results Test Name Date and Time Measure Units Reference Range Abnormal Flag Comments Unknown Advance Directives Directive Yes / No Effective Date File Name Unknown Encounters Encounter Practice Location Reason(s) Diagnoses Date Provider Care Team Description For Visit Members Katie Benitez Oth Nov-2 [place] Referring In Womens related 1-201 Krista. Provider: Health [place], conditions, 7 [address], third Medical Carina Sharpe [place], [email or web address] Center 700 [id number], weeks [facility] gestation of 120, Center tel:+21 [place], [facility] 120, [address] [place], Emmanuel, [id number] [place], , [place]. [id number]. tel: tel:[phone] Katie Benitez Encounter for Nov-0 [place] Referring In Womens suprvsn of 7-201 Krista. Provider: Elisha IBARRA, normal 7 [address], , Carina Mccarthy [place], third Center 700 [id number], [email or web address] [facility] weeks 120, [place] tel:+21 gestation of [facility] 120, [address] Emmanuel [place], [id number] [place], , [place]. [id number]. tel: tel:[phone] Katie Benitez Abnormal Oct-2 [place] Referring In Womens glucose 6-201 Krista. Provider: Health FRED, complicating 7 [address], [email or web address] Carina Mccarthy [place], weeks Center 700 [id number], gestation of [facility] 120, Center tel:+21 Emmanuel [facility] 120, [address] Emmanuel [place], [id number] [place], , [place]. [id number]. tel: tel:[phone] Katie Benitez Encounter for Oct-1 [place] Referring In Womens suprvsn of 0-201 Krista. Provider: Health FRED, normal 7 [address], , Carina Mccarthy [place], second Center 700 [id number], [email or web address] Dr [facility] [place] weeks 120, Center tel: gestation of Benitez [facility] 120, [address] Emmanuel [place], [id number] [place], , [place]. [id number]. tel: tel:[phone] Katie Benitez Encounter for Sep-1 [place] Referring In Womens suprvsn of 4-201 Krista. Provider: Health FRED, normal 7 [address], , Carina Mccarthy [place], second Center 700 [id number], [email or web address] [facility] weeks 120, Center tel: gestation of Emmanuel [facility] 120, [address] Emmanuel [place], [id number] [place], , [place]. [id number]. tel: tel:[phone] Katie Benitez Encounter for Aug- [place] Referring In Womens suprvsn of 7-201 Krista. Provider: Health FRED, normal 7 [address], , Carina Mccarthy [place], second Center 700 [id number], [facility] weeks 120, Center tel: gestation of Emmanuel [facility] 120, [address] [place], [id number] [place], , [place]. [id number]. tel: tel:[phone] Benitez Maternal care Aug- [place] Referring In Womens Ultrasound for excess 7-201 Krista. Provider: Health FRED, growth, 7 [address], second tri, Carina Mccarthy [place], unsp18 weeks Center 700 [id number], gestation of Inocente Watt [facility] [place] 120, Center tel: Emmanuel [facility] 120, [address] [place], Emmanuel, [id number] [place], , [place]. [id number]. tel: tel:[phone] Benitez Maternal care Pal-2 [place] Referring In Womens for excess 5-201 Krista. Provider: Health FRED, growth, 7 [address], second tri, Medical Carina Sharpe [place], unspEncounter Center 700 [id number], for suprvsn of Inocente Watt Medical normal 120, Center tel:21 , Emmanuel, Inocente 120, [address] second [place] Benitez, [email or web address] [id number] [place], weeks , [place]. [id number]. gestation of tel: tel: [phone] Family History Family Member Diagnosis Age At [...] older Payers Payer name Insurance type Covered green party ID Authorization(s) [facility] [id number] [employer] - Medicaid [place] [id number] [facility] [id number] [employer] [place] [employer] - Medicaid MC [id number] [facility] [id number] [employer] [place] [employer] - Medicaid MC [id number] Social History Type Description Quantity Date Captured Alcohol Use Details No Caffeine Use Details Unknown Tobacco Use Status Smoking Status Former smoker Vital Signs Date / Height Weight BMI Pulse Blood Temperature Respiratory Body Head BMI Time: Rate Pressure Rate Surface Circumference percentile Area 162.10 29.6 lbs 4 mm[Hg] 1:18 kg/m PM eter (2) Chief Complaint And Reason For Visit Unknown Chief Complaint And Reason For Visit Reason For Referral Reason For Referral Unknown Plan Of Care Date Type Action Status Appointment Nathalie Arango BOOKED Future Order: Radiology Order Complete OB Ultrasound > 14 Ordered Weeks (27593) Date Type Problem Goal Intervention Status Start [...]
--- OUTSIDE RECORDS SUMMARY | 2017-11-30 06:15 | External Medical Summary | Continuity of Care Document ---
:1993 Author Organization [facility] Address [address] [place], [place] [address] Phone Care Team Providers Name Role Phone [...] of - Migraines Active Procedures Procedure Date Unknown Results Test Name Date and Time Measure Units Reference Range Abnormal Flag Comments Unknown Advance Directives Directive Yes / No Effective Date File Name Unknown Encounters Encounter Practice Location Reason(s) Diagnoses Date Provider Care Team Description For Visit Members Katie Benitez Jul- [place] In [facility] 4-201 [facility], 7 700 [address], [place], [place], [place] [id number], , [facility] 120, tel:[phone] Emmanuel, [address] [place], [id number] , [place]. tel: [phone] Katie Benitez Encounter for Sep- [place] Referring In Womens suprvsn of 4-201 Krista. Provider: Elisha IBARRA, normal 7 [address], , Carina Mccarthy [place], second Center 700 [id number], [email or web address] [facility] weeks 120, Center tel: gestation of Emmanuel [facility] 120, [address] Emmanuel [place], [id number] [place], , [place]. [id number]. tel: tel: [phone] Katie Benitez Encounter for Aug- [place] Referring In Womens suprvsn of 7-201 Krista. Provider: Elisha IBARRA, normal 7 [address], , Carina [place]cc[place], second Center 700 [id number], [email or web address] [facility] weeks 120, Center tel: gestation of Emmanuel [facility] 120, [address] Emmanuel [place], [id number] [place], , [place]. [id number]. tel: tel: [phone] Katie Benitez Maternal care Aug-1 [place] Referring In Womens Ultrasound for excess 7-201 Krista. Provider: Elisha IBARRA, growth, 7 [address], second tri, Carina Mcc[place], unsp18 weeks Center 700 [id number], gestation of Inocente Watt 120, Center tel: Emmanuel [facility] 120, [address] [place], [place], [id number] [place], , [place]. [id number]. tel: tel:[phone] Katie Benitez Maternal care Pal-2 [place] Referring In Womens for excess 5-201 Krista. Provider: Elisha IBARRA, growth, 7 [address], second tri, Carina [place]cc[place], unspEncounter Center 700 [id number], for suprvsn of Inocente Watt normal 120, Center tel: , Emmanuel [facility] 120, [address] second Emmanuel [place], [email or web address] [place], [place] , [place]. [id number]. gestation of tel: tel: [phone] Family History Family Member Diagnosis Age At [...] Unknown Payers Payer name Insurance type Covered alliance party ID Authorization(s) [facility] [id number] Social History Type Description Quantity Date Captured [...] Complete OB Ultrasound > 14 Ordered Weeks (26518) Date Type Problem Goal Intervention Status Start [...]
--- OUTSIDE RECORDS SUMMARY | 2017-11-30 06:15 | External Medical Summary | Summary of Care ---
:1993 Author Name Sebastián Mitchell M.D. Address [address] Unavailable [place], [place] [phone] Care Team Providers Name Role Phone Sebastián Mitchell M.D. Unavailable Unavailable Ander Mitchell Primary Care Provider [...] Name Dates Details Mirena IUD Refills: 0 ActiveTraMADol HCl - 50 MG Oral Tablet TAKE 1 TABLET 4 TIMES DAILY NEEDED. Quantity: 20 Refills: 0 Ander Mitchell M.D. Started 12-Apr-2014 ActiveOndansetron HCl - 4 MG Oral Tablet Tab 1 q 6 hrs prn for nausea Quantity: 8 Refills: 0 Ander Mitchell M.D. Started 12-Apr-2014 ActiveTriamcinolone Acetonide 0.1 % Mouth/Throat Paste APPLY SPARINGLY 4 TIMES DAY Quantity: 1 Refills: 0 Ander Mitchell M.D. Started Active5 GM Tube Lidocaine Viscous 2 % Mouth/Throat Solution SWISH AND SPIT OUT 5ML EVERY 2 HRS PRN PAIN Quantity: 1 Refills: 0 Ander Mitchell M.D. Started [id number] ML Bottle Allergies and Adverse Reactions Name Dates Details [...] Administered on:16-Nov-2008 Influenza Administered on:28-Sep-2012 Lot #: [id number] Tdap (Adacel) Administered on:14-Feb-2013 Lot #: [id number] Social History Name Dates Details Smoking StatusUnknown if ever smoked Vital Signs Date Test Result Details 09:36 BP Systolic 112 mm[Hg] Status: BP Diastolic 70 mm[Hg] Status: Heart Rate 68 /min Status: Temperature 97.4 f Status: Weight 124 lb Status: 09:42 BP Systolic 110 mm[Hg] Status: BP Diastolic 66 mm[Hg] Status: Heart Rate 104 /min Status: Temperature 101.4 f Status: Weight 114 lb Status: O2 SAT 97 % Status: Results Date Description Value Details 10:17 CBC w/ Auto Diff 7150 WBC 7.7 K/uL (Better) Range: 4.5-11.0 RBC 4.61 mil/uL (Better) Range: 3.60-5.00 HGB 14.2 g/dL (Better) Range: 12.0-16.0 HCT 41.9 % (Better) Range: 36.0-48.0 MCV 91.0 fL (Better) Range: 80.0-99.0 MCH 30.8 pg (Better) Range: 27.3-32.5 MCHC 33.8 % (Better) Range: 32.0-36.0 RDW 12.6 % (Better) Range: 11.6-14.8 PLATELETS 207 K/uL (Better) Range: 150-400 MPV 7.6 fL (Better) Range: 6.0-11.0 %NEUTRO 77.6 % (Better) Range: 37.0-80.0 %LYMPHS 14.3 % (Better) Range: 13.0-50.0 %MONO 5.7 % (Better) Range: 0.0-12.0 %EOS 0.8 % (Better) Range: 0.0-7.0 %BASO 0.2 % (Better) Range: 0.0-2.5 %TAHIRA 1.4 % (Better) Range: 0.0-5.0 NEUTRO 6.0 K/uL (Better) Range: 2.0-6.9 LYMPHS 1.1 K/uL (Better) Range: 0.6-3.4 MONOS 0.4 K/uL (Better) Range: 0.0-0.9 EOS 0.1 K/uL (Better) Range: 0.0-0.7 BASO 0.0 K/uL (Better) Range: 0.0-0.2 Plan of Care Planned Observations Name Dates Details Planned Goals not documented Goal Instructions Instructions not documented Encounters Appointment; Ander Mitchell On Encounter Diagnosis: Problem not documented 09:30 Appointment; Sander Madden On Encounter Diagnosis: Problem not documented 09:45 Appointment; Ander Mitchell On 13-Sep-2014 Encounter Diagnosis: Problem not documented 11:45 Appointment; Yi Conrad On Encounter Diagnosis: Problem not documented 13:00 Appointment; Ander Mitchell On 12-Apr-2014 Encounter Diagnosis: Problem not documented 16:00 Appointment; Anders Fernando On 26-Jan-2014 Encounter Diagnosis: Problem not documented 14:00 Appointment; Yi Conrad On 03-Oct-2013 Encounter Diagnosis: Problem not documented 10:45 Appointment; Ander Mitchell On 16-Aug-2013 Encounter Diagnosis: Problem not documented 13:00 Appointment; Yi Conrad On 21-Jul-2013 Encounter Diagnosis: Problem not documented 14:15 Appointment; Yi Conrad On Encounter Diagnosis: Problem not documented 13:30
--- OUTSIDE RECORDS SUMMARY | 2017-11-30 06:15 | External Medical Summary | Continuity of Care Document ---
:1993 Author Organization [facility] Address [address] [place], [place] [phone] Phone Care Team Providers Name Role Phone [...] For Visit Members Katie Benitez Encounter for Nov-0 [place] Referring In Womens suprvsn of 7-201 Krista. Provider: Health FRED, normal 7 [address], , Carina Mccarthy [place], third Center 700 [id number], [email or web address] Dr [facility] weeks 120, Center tel:+21 gestation of [facility] 120, [address] [place], [place], [id number] [place], , [place]. [id number]. tel: tel:[phone] Katie Benitez Abnormal Oct-2 [place] Referring In Womens glucose 6-201 Krista. Provider: Health FRED, complicating 7 [address], [email or web address] Carina Mccarthy [place], weeks Center 700 [id number], gestation of Dr [facility] 120, Center tel:+21 [facility] 120, [address] [place], [place], [id number] [place], , [place]. [id number]. tel: tel:[phone] Katie Benitez Oct-1 [place] In Womens 9-201 Krista. Health FRED, 7 700 [address], Medical [place], [place] [id number], Dr [facility] [place] 120, tel:+21 [facility] [address], [id number] , [place]. tel: [phone] Katie Benitez Encounter for Oct-1 [place] Referring In Womens suprvsn of 0-201 Krista. Provider: Health FRED, normal 7 [address], , Carina Mccarthy [place], second Center 700 [id number], [email or web address] Dr [facility] weeks 120, Center tel:+21 gestation of Emmanuel [facility] 120, [address] Emmanuel [place], [id number] [place], , [place]. [id number]. tel: tel:[phone] Katie Benitez Encounter for Sep-1 [place] Referring In Womens suprvsn of 4-201 Krista. Provider: Elisha IBARRA, normal 7 [address], , Carina Mcc[place], second Center 700 [id number], Inocente Watt [facility] weeks 120, Center tel: gestation of Emmanuel [facility] 120, [address] Emmanuel [place], [id number] [place], , [place]. [id number]. tel: tel:[phone] Katie Benitez Encounter for [place] Referring In Womens suprvsn of 7-201 Krista. Provider: Elisha IBARRA, normal 7 [address], , Carina [place]cc[place], second Center 700 [id number], [email or web address] Inocente Watt [facility] weeks 120, Center tel: gestation of Emmanuel [facility] 120, [address] Emmanuel [place], [id number] [place], , [place]. [id number]. tel: tel:[phone] Katie Benitez Maternal care [place] Referring In Womens Ultrasound for excess 7-201 Krista. Provider: Elisha IBARRA, growth, 7 [address], second tri, Carina Mccarthy [place], unsp18 weeks Center 700 [id number], gestation of Inocente Watt 120, Center tel: Emmanuel [facility] 120, [address] Emmanuel [place], [id number] [place], , [place]. [id number]. tel: tel:[phone] Katie Benitez Maternal care [place] Referring In Womens for excess 5-201 Krista. Provider: Elisha IBARRA, growth, 7 [address], second tri, Carina Mcc[place], unspEncounter Center 700 [id number], for suprvsn of Inocente Watt normal 120, Center tel: , Emmanuel [facility] 120, [address] second Emmanuel [place], [id number] [place], weeks , [place]. [id number]. gestation of tel: tel: [phone] Family History Family Member Diagnosis Age At [...] Insurance type Covered green party ID Authorization(s) [facility] [id number] [employer] [place] [employer] - Medicaid [place] [id number] [facility] [id number] [employer] [place] [employer] - Medicaid [place] [id number] [facility] [id number] [employer] [place] [employer] - Medicaid [place] [id number] Social History Type Description Quantity Date Captured [...] Complete OB Ultrasound > 14 Ordered Weeks (49256) Date Type Problem Goal Intervention Status Start [...]
--- OUTSIDE RECORDS SUMMARY | 2017-11-30 06:15 | External Medical Summary | Continuity of Care Document ---
:1993 Author Organization [facility] Address [address] [place], [place] [phone] Phone Care Team Providers Name Role Phone [...] , Carina [place]cc[place], third Center 700 [id number], [email or web address] Dr [facility] weeks 120, Center tel:+21 gestation of [facility] 120, [address] [place], [place], [id number] [place], , [place]. [id number]. tel: tel:[phone] Katie Benitez Abnormal Oct-2 [place] Referring In Womens glucose 6-201 Krista. Provider: Health FRED, complicating 7 [address], [email or web address] Carina Mccarthy [place], weeks Center 700 [id number], gestation of Dr [facility] 120, Center tel:+21 [facility] 120, [address] [place], [place], [id number] [place], , [place]. [id number]. tel: tel:[phone] Katie Benitez Oct-1 [place] In Womens 8-201 Krista. Health FRED, 7 700 [address], Medical [place], [place] [id number], Dr [facility] [place] 120, tel:+21 [facility] [address], [id number] , [place]. tel: [phone] Katie Benitez Encounter for Oct-1 [place] Referring In Womens suprvsn of 0-201 Krista. Provider: Health FRED, normal 7 [address], , Carina Mcc[place], second Center 700 [id number], [email or web address] Dr [facility] weeks 120, Center tel:+21 gestation of Emmanuel [facility] 120, [address] Emmanuel [place], [id number] [place], , [place]. [id number]. tel: tel:[phone] Katie Benitez Encounter for Sep-1 [place] Referring In Womens suprvsn of 4-201 Krista. Provider: Elisha IBARAR, normal 7 [address], , Carina [place]cc[place], second Center 700 [id number], Inocente Watt [facility] weeks 120, Center tel: gestation of Emmanuel [facility] 120, [address] Emmanuel [place], [id number] [place], , [place]. [id number]. tel: tel:[phone] Katie Benitez Encounter for [place] Referring In Womens suprvsn of 7-201 Krista. Provider: Elisha IBARRA, normal 7 [address], , Carina [place]cc[place], second Center 700 [id number], [email or web address] Inocente Watt [facility] weeks 120, Center tel: gestation of Emmanuel [facility] 120, [address] Emmanuel [place], [id number] [place], , [place]. [id number]. tel: tel:[phone] Katie Benitez Maternal care [place] Referring In Womens Ultrasound for excess 7-201 Krista. Provider: Elisha IBARRA, growth, 7 [address], second tri, Carina Mcc[place], unsp18 weeks Center 700 [id number], gestation of Inocente Watt 120, Center tel: Emmanuel [facility] 120, [address] Emmanuel [place], [id number] [place], , [place]. [id number]. tel: tel:[phone] Katie Benitez Maternal care [place] Referring In Womens for excess 5-201 Krista. Provider: Elisha IBARRA, growth, 7 [address], second tri, Carina [place], unspEncounter Center 700 [id number], for suprvsn of Inocente Watt normal 120, Center tel: , Emmanuel [facility] 120, [address] second Emmanuel [place], [id number] [place], weeks , [place]. [id number]. gestation of tel: tel: [phone] Family History Family Member Diagnosis Age At [...] name Insurance type Covered libertarian ID Authorization(s) [facility] [id number] [employer] [place] [employer] - Medicaid [place] [id number] [facility] [id number] [employer] [place] [employer] - Medicaid [place] [id number] [facility] [id number] [employer] - Medicaid [place] [id number] Social History Type Description Quantity Date Captured [...] Complete OB Ultrasound > 14 Ordered Weeks (05142) Date Type Problem Goal Intervention Status Start [...]
--- OUTSIDE RECORDS SUMMARY | 2017-11-30 06:16 | External Medical Summary | Summary of Care ---
:1995 Author Name Sander Madden M.D. Address [address] Unavailable [place], [place] [phone] Care Team Providers Name Role Phone Sebastián Mitchell M.D. Unavailable Unavailable Sander Madden M.D. Unavailable Unavailable Ander Mitchell Primary Care [...] Status: Active Dysuria (788.1, R30.0) Status: Active Medications Name Dates Details Mirena IUD Refills: 0 ActiveTraMADol HCl - 50 MG Oral Tablet TAKE 1 TABLET 4 TIMES DAILY NEEDED. Quantity: 20 Refills: 0 Ander Mitchell M.D. Started 12-Apr-2014 ActiveOndansetron HCl - 4 MG Oral Tablet Tab 1 q 6 hrs prn for nausea Quantity: 8 Refills: 0 Ander Mitchell M.D. Started 12-Apr-2014 ActiveAcyclovir 200 MG Oral Capsule 4 qid x 5 days Quantity: 30 Refills: 1 Sander Madden M.D. Started Active Allergies and Adverse Reactions Name Dates Details No Known Drug Allergies Status: Active Past Medical History Name Dates Details History of Supervision of normal (V22.1, Z34.90) Status: Resolved Procedures Procedure Dates Details History of Obstetrical Surgery Completed: CBC w/ Auto Diff 7150 Ordered: Immunization Name Dates Details OPV Administered on:1993 [...] Administered on:16-Nov-2008 Influenza Administered on:28-Sep-2012 Lot #: [id number] Tdap (Adacel) Administered on:14-Feb-2013 Lot #: [id number] Social History Name Dates Details Smoking StatusUnknown if ever smoked Vital Signs Date Test Result Details 09:42 BP Systolic 110 mm[Hg] Status: BP Diastolic 66 mm[Hg] Status: Heart Rate 104 /min Status: Temperature 101.4 f Status: Weight 114 lb Status: O2 SAT 97 % Status: Results Date Description Value Details Results not documented Plan of Care Planned Observations Name Dates Details Planned Goals not documented Goal Instructions Instructions not documented Encounters Appointment; Sander Madden On Encounter Diagnosis: Problem [...]
--- OUTSIDE RECORDS SUMMARY | 2017-11-30 06:16 | External Medical Summary | Continuity of Care Document ---
:1995 Author Organization [facility] Allergies Active Description Code Type Severity Reaction Onset Reported/ Identified Relationship Clinical to Patient Status Yes No Known 86586 3 N/A N/A Drug 0 Allergies Yes No Known 71706 3 N/A N/A Allergies 8 Medications Medication Packaging Start Date Stop Date Route Dosage Sig Capsule 06/23/2017 FIORICET 7 take 1 - 2 capsule by oral route every 4 hours as needed not to exceed 6 capsules per 24hrs Problems Date Dx Attending Type Code Diagnosis Diagnosed By Coded 03/24/2016 W 624.9 Vulvar lesion 03/24/2016 W V25.42 Contraception - Surveillance of IUD 03/24/2016 W V72.31 Gynecological Examination 03/24/2016 W V74.5 Screening for STDs 04/08/2016 W 624.9 Vulvar lesion 04/08/2016 W V25.42 Contraception - Surveillance of IUD 04/08/2016 W V72.31 Gynecological Examination 04/08/2016 W V74.5 Screening for STDs 05/07/2016 W 624.9 Vulvar lesion 05/07/2016 W V25.42 Contraception - Surveillance of IUD 05/07/2016 W V72.31 Gynecological Examination 05/07/2016 W V74.5 Screening for STDs 05/20/2016 W 624.9 Vulvar lesion 05/20/2016 W V25.42 Contraception - Surveillance of IUD 05/20/2016 W V72.31 Gynecological Examination 05/20/2016 W V74.5 Screening for STDs 05/25/2016 W T83.32XD Absent IUD strings, subsequent encounter 05/25/2016 W Z01.419 Gynecologic examination - routine 05/25/2016 W Z30.431 Contraception - surveillance of IUD 08/12/2016 W 624.9 Vulvar lesion 08/12/2016 W V25.42 Contraception - Surveillance of IUD 08/12/2016 W V72.31 Gynecological Examination 08/12/2016 W V74.5 Screening for STDs 08/22/2016 W Z30.432 Contraception - removal of IUD 08/22/2016 W Z31.69 Preconception counseling 01/19/2017 W 624.9 Vulvar lesion 01/19/2017 W V25.42 Contraception - Surveillance of IUD 01/19/2017 W V72.31 Gynecological Examination 01/19/2017 W V74.5 Screening for STDs 03/31/2017 W 624.9 Vulvar lesion 03/31/2017 W V25.42 Contraception - Surveillance of IUD 03/31/2017 W V72.31 Gynecological Examination 03/31/2017 W V74.5 Screening for STDs 04/10/2017 W 624.9 Vulvar lesion 04/10/2017 W V25.42 Contraception - Surveillance of IUD 04/10/2017 W V72.31 Gynecological Examination 04/10/2017 W V74.5 Screening for STDs 04/24/2017 W O35.5XX0 Maternal care for (suspected) damage to fetus by drugs, unsp 05/05/2017 W 624.9 Vulvar lesion 05/05/2017 W V25.42 Contraception - Surveillance of IUD 05/05/2017 W V72.31 Gynecological Examination 05/05/2017 W V74.5 Screening for STDs 05/11/2017 W R11.2 Nausea with vomiting 05/11/2017 W Z34.81 , subsequent - first trimester 06/04/2017 W 624.9 Vulvar lesion 06/04/2017 W V25.42 Contraception - Surveillance of IUD 06/04/2017 W V72.31 Gynecological Examination 06/04/2017 W V74.5 Screening for STDs 07/16/2017 Krista [facility] W O36.62x0 Maternal care for excess growth, second tri, unsp 07/16/2017 Krista H[facility] W Z3A.18 18 weeks gestation of 07/22/2017 W 624.9 Vulvar lesion 07/22/2017 W V25.42 Contraception - Surveillance of IUD 07/22/2017 W V72.31 Gynecological Examination 07/22/2017 W V74.5 Screening for STDs Procedures Code Description [place] [address] Telephone 09/01/2012 Call [id number] SPECIMEN 05/03/2015 HANDLING OFFICE-LAB 05908 PREV VISIT 05/03/2015 EST AGE 18-39 14632 Telephone 03/27/2016 Call [id number] PREV VISIT 05/20/2016 EST AGE 18-39 90280 REMOVE 08/12/2016 INTRAUTERINE DEVICE 66465 URINE 08/12/2016 TEST 94430 08/12/2016 OFFICE/OUTPATIENT VISIT EST 42410 Lab Visit 04/10/2017 95907 OB US < 14 04/24/2017 WKS SINGLE FETUS 07240 OB Visit MD 05/05/2017 51183 Ultrasnd exam 07/16/2017 of preg uterus, compl 79792 Immuniz 09/08/2017 admnin, 1 vac, sngl/combo 76755 Flu Vaccine - 09/08/2017 Quadrivalent 72326 Immuniz 10/06/2017 admnin, 1 vac, sngl/combo 71627 TDAP VACCINE 10/06/2017 >7 IM Results There is no data. Encounters ACCT No. Visit Discharge Status Pt. Type Provider Facility Loc./Unit Complaint Date/Time 39783 05/05/2017 05/05/2017 CLS [facility] 00:00:00 23:59:[address] [facility] [id number] 11/17/2017 11/17/2017 CLS Outpatient [facility], 09:20:00 23:59:59 Krista Rodriguez [id number] 11/03/2017 11/03/2017 CLS Outpatient [place], 15:00:00 23:59:59 Krista Rodriguez [id number] 10/20/2017 10/20/2017 CLS Outpatient [place], 13:15:00 23:59:59 Krista Rodriguez [id number] 10/06/2017 10/06/2017 CLS Outpatient [place], 13:15:00 23:59:59 Krista Rodriguez [id number] 09/24/2017 09/24/2017 CLS Outpatient [place], 11:15:00 23:59:59 Krista Rodriguez [id number] 09/17/2017 09/17/2017 CLS Outpatient [place], 10:28:00 23:59:59 Krista Rodriguez [id number] 09/16/2017 09/16/2017 CLS Outpatient [place], 08:07:00 23:59:59 Krista Rodriguez [id number] 09/15/2017 09/15/2017 CLS Outpatient [place], 07:22:00 23:59:59 Krista Rodriguez [id number] 09/09/2017 09/09/2017 CLS Outpatient [place], 08:51:00 23:59:59 Krista Rodriguez [id number] 09/08/2017 09/08/2017 CLS Outpatient [place], 14:45:00 23:59:59 Krista Rodriguez [id number] 08/13/2017 08/13/2017 CLS Outpatient [place], 12:01:00 23:59:59 Krista Rodriguez [id number] 08/13/2017 08/13/2017 CLS Outpatient [place], 11:15:00 23:59:59 Krista Rodriguez [id number] 07/16/2017 07/16/2017 CLS Outpatient [place], 10:15:00 23:59:59 Krista Rodriguez [id number] 07/16/2017 07/16/2017 CLS Outpatient [place], 09:45:00 23:59:59 Krista Rodriguez [id number] 06/23/2017 06/23/2017 CLS Outpatient [place], 14:30:00 23:59:59 Krista Michael
--- OUTSIDE RECORDS SUMMARY | 2017-11-30 06:16 | External Medical Summary | Summary of Care ---
:1995 Author Name Sebastián Mitchell M.D. Address Unavailable Unavailable , Care Team Providers Name Role Phone Sebastián [...] Active Acute sinusitis (461.9, J01.90) Status: Active Left ankle pain (719.47, M25.572) Status: Active Acute foot pain, left (729.5, M79.672) Status: Active Medications Name Dates Details Mirena IUD Refills: 0 Active Nabumetone 500 MG Oral Tablet TAKE 2 TABLETS DAILY WITH FOOD Quantity: 60 Refills: 1 Ander Mitchell M.D. Start 14-Jul-2016 Active Allergies and Adverse Reactions Name Dates Details No Known Drug Allergies (Allergy) Status: Active Past Medical History Name Dates Details History of Supervision of normal (V22.1, Z34.90) Status: Resolved Procedures Procedure Dates Details History of Obstetrical Surgery Completed: XRay FOOT-Left Ordered: 14-Jul-2016 XRay ANKLE-Left Ordered: 14-Jul-2016 Immunization Name Dates Details OPV on: 1993 [...] on: 16-Nov-2008 Influenza on: 28-Sep-2012 Lot #: [id number] Tdap (Adacel) on: 14-Feb-2013 Lot #: [id number] Social History Name Dates Details - Status: Smoking Status Name Dates Details Never smoker Vital Signs Date Test Result Details 14-Jul-2016 14:19 BP Systolic 112 mm[Hg] Status: Comments: Location: ; Position: BP Diastolic 64 mm[Hg] Status: Comments: Location: ; Position: Heart Rate 74 /min Status: Comments: Location: ; Weight 134 lb Status: Results Date Description Value Details Results not documented Plan of Care Name Dates Details Planned Observations Planned Goals not documented Interventions Provided Medication ChangesNabumetone 500 MG Oral Tablet - StartSulfamethoxazole- Trimethoprim 800-160 MG Oral Tablet - CompletedLabs/Procedures/ImagingXRay ANKLE -Left; To be Done: 14 Jul 2016XRay FOOT-Left; To be Done: 2016 Instructions Name Dates Details Instructions not documented Encounters Appointment; Geneva Vera A.P.R.N. On 13-Feb-2016 Encounter Diagnosis: Problem not documented 11:40 Appointment; Ander Mitchell M.D. On Encounter Diagnosis: Problem not documented 09:30 Appointment; Sander Madden M.D. On Encounter Diagnosis: Problem not documented 09:45 Appointment; Ander Mitchell M.D. On 13-Sep-2014 Encounter Diagnosis: Problem not documented 11:45
--- OUTSIDE RECORDS SUMMARY | 2017-11-30 06:16 | External Medical Summary | Summary of Care ---
:1995 Author Name Sebastián Mitchell M.D. Address [address] Unavailable [place], [place] [id number] Care Team Providers Name Role Phone Sebastián [...] 1 Refills: 0 Ander Mitchell M.D. Started [id number] ML Bottle Allergies and Adverse Reactions Name [...] Administered on:16-Nov-2008 Influenza Administered on:28-Sep-2012 Lot #: [id number] Tdap (Adacel) Administered on:14-Feb-2013 Lot #: [id number] Social History Name Dates Details Smoking StatusUnknown [...]
--- OUTSIDE RECORDS SUMMARY | 2017-11-30 06:16 | External Medical Summary | Continuity of Care Document ---
:1995 Author Organization [facility] Address [address] [place], [place] [phone] Phone Care Team Providers Name Role Phone [...] second trimester 18 weeks gestation of - Maternal care for excess growth, - second tri, unsp Encounter for suprvsn of normal - , second trimester 15 weeks gestation of - Maternal care for excess growth, - second tri, unsp 18 weeks gestation of - Migraines Active Procedures Procedure Date OB Visit No Charge Results Test Name Date and Time Measure Units Reference Range Abnormal Flag Comments Unknown Advance Directives Directive Yes / No Effective Date File Name Unknown Encounters Encounter Practice Location Reason(s) Diagnoses Date Provider Care Team Description For Visit Members Katie Benitez Encounter for [facility] Referring In [facility] suprvsn of 7-201 Krista. Provider: Health [place], normal 7 [address], , Medical Carina Sharpe [place], [facility] Center [id number], Dr, [facility] weeks 120, Center tel: gestation of Emmanuel [place] 120, [address] [place], [id number] [place], , [place]. [id number]. tel: tel: [phone] Katie Benitez Maternal care [place] Referring In Womens Ultrasound for excess 7-201 Krista. Provider: Health FRED, growth, 7 [address], second tri, Carina Mccarthy [place], unsp18 weeks Center 700 [id number], gestation of Dr [facility] 120, Center tel: Emmanuel [facility] 120, [address] Emmanuel [place], [id number] [place], , [place]. [id number]. tel: tel: [phone] Katie Benitez Maternal care [place] Referring In Womens for excess 5-201 Krista. Provider: Health FRED, growth, 7 [address], second tri, Carina Mcc[place], unspEncounter Center 700 [id number], for suprvsn of Dr [facility] normal 120, Center tel: , Emmanuel [place] 120, [address] second Emmanuel [place], [id number] [place], weeks , [place]. [id number]. gestation of tel: tel: [phone] Family History Family Member Diagnosis Age At [...] Insurance type Covered constitution party ID Authorization(s) KATIUSKA WILEY [id number] Social History Type Description Quantity Date Captured Alcohol Use Details No Caffeine Use Details Unknown Tobacco Use Status Smoking Status Former smoker Vital Signs Date / Height Weight BMI Pulse Blood Temperature Respiratory Body Head BMI Time: Rate Pressure Rate Surface Circumference percentile Area 142.50 26.0 / lbs 6 mm[Hg] 10:47 kg/m AM eter (2) Chief Complaint And Reason For Visit Unknown Chief Complaint And Reason For Visit Reason For Referral Reason For Referral Unknown Plan Of Care Date Type Action Status Appointment Nathalie Arango BOOKED Future Order: Radiology Order Complete OB Ultrasound > 14 Ordered Weeks (85164) Date Type Problem Goal Intervention Status Start [...]
--- OUTSIDE RECORDS SUMMARY | 2017-11-30 06:16 | External Medical Summary | Continuity of Care Document ---
:1995 Author Organization [facility] Address [address] [place], [place] [phone] Phone Care Team Providers Name Role Phone [...] Reference Range Abnormal Flag Comments Panel Description: GLUCOSE TOLERANCE TEST, GESTATIONAL,4SPEC(100G) GLUCOSE, FASTING 08:04:00 81 mg/dL 65-94 N GLUCOSE, 1 HOUR 08:04:00 128 mg/dL <180 N GLUCOSE, 2 HOUR 08:04:00 99 mg/dL <155 N GLUCOSE, 3 HOUR 08:04:00 108 mg/dL <140 N CHECKED NAMES & amp; TIMES ON TUBES. [id number] 08:04:00 See Below Escalante/Coustan Criteria: Two or more values greater than the above reference intervals are suggestive of gestational diabetes. REPORT COMMENT:FASTING:YESTe st performed at [facility] [id number] [place] [address]Sqsgwgdf: MANFRED ARANGO DO,MPH Advance Directives Directive Yes / No Effective Date File Name Unknown Encounters Encounter Practice Location Reason(s) Diagnoses Date Provider Care Team Description For Visit Members Katie Benitez Abnormal Oct-2 [place] Referring In Womens glucose 6-201 Krista. Provider: Health FRED, complicating 7 [address], [email or web address] Medical Rolando Lewis [place], [place], weeks Center 700 [id number], gestation of Dr [facility] 120, Center tel:+ Emmanuel [facility] 120, [address] [place], Emmanuel, [id number] [place], , [place]. [id number]. tel: tel: [phone] Katie Benitez Oct-1 [facility] In Womens 1-201 Krista. Health FRED, 7 700 [address], [place], [place] [id number], Dr [facility] 120, tel:+ Emmanuel [address], [id number] , [place]. tel: [phone] Katie Benitez Encounter for Oct-1 [place] Referring In Womens suprvsn of 0-201 Krista. Provider: Health FRED, normal 7 [address], , [place], second Center 700 [id number], [email or web address] Dr [facility] weeks 120, Center tel:+21 gestation of Emmanuel [facility] 120, [address] [id number] [place], , [place] [id number]. tel:+1-31 tel:[phone] Katie Benitez Encounter for Sep- [place] Referring In Womens suprvsn of 4-201 Krista. Provider: Elisha IBARRA, normal 7 [address], , Carina Mcc[place], second Center 700 [id number], [email or web address] Inocente [place] weeks 120, Center tel: gestation of Emmanuel [place] 120, [address] Emmanuel [place], [id number] [place], , [place]. [id number]. tel: tel:[phone] Katie Benitez Encounter for Jun- [place] Referring In Womens suprvsn of 7-201 Krista. Provider: Elisha IBARRA normal 7 [address], , Carina [place], second Center 700 [id number], [email or web address] In[place]ente [place] weeks 120, Center tel: gestation of Emmanuel [facility] 120, [address] Emmanuel [place], [id number] [place], , [place] [id number]. tel: tel:[phone] Katie Benitez Maternal care Jun- [place] Referring In Womens Ultrasound for excess 7-201 Krista. Provider: Elisha IBARRA, growth, 7 [address], second tri, Carina Mcc[place], unsp18 weeks Center 700 [id number], gestation of Inocente [place]att 120, Center tel: Emmanuel [place] 120, [address] Emmanuel [place], [id number] [place], , [place]. [id number]. tel: tel:[phone] Katie Benitez Maternal care May-2 [place] Referring In Womens for excess 5-201 Krista. Provider: Elisha IBARRA, growth, 7 [address], second tri, Carina [place], unspEncounter Center 700 [id number], for suprvsn of Inocente Watt normal 120, Center tel: , Inocente Benitez 120, [address] second Emmanuel [place], [id number] [place] , [place]. [id number]. gestation of tel: tel: [phone] Family History Family Member Diagnosis Age At [...] name Insurance type Covered libertarian ID Authorization(s) [facility] [id number] [employer] - Medicaid [place] [id number] [facility] [id number] [employer] [place] [employer] - Medicaid [place] [id number] Social History Type Description Quantity Date Captured [...] Complete OB Ultrasound > 14 Ordered Weeks (12956) Date Type Problem Goal Intervention Status Start [...]
--- OUTSIDE RECORDS SUMMARY | 2017-11-30 06:16 | External Medical Summary | Continuity of Care Document ---
:1995 Author Organization [facility] Address [address] [place], [place] [phone] Phone Care Team Providers Name Role Phone [...] Effective Dates (start - stop) Clinical Status Abnormal glucose complicating - 28 weeks gestation of - Maternal care for [...] , Carina Mcc[place], third Center 700 [id number], [email or web address] Dr [facility] weeks 120, [place] tel:+ gestation of [facility] 120, [address] Emmanuel [place], [id number] [place], , [place]. [id number]. tel: tel:[phone] Katie Benitez Abnormal Oct-2 [place] Referring In Womens glucose 6-201 Krista. Provider: Elisha IBARRA, complicating 7 [address], Carina [place], weeks Center 700 [id number], gestation of Dr [facility] 120, Center tel[facility]+ [facility], [address] T[place]manuel, [id number] [place], , [place]. [id number]. tel: tel:[phone] Katie Benitez Encounter for Oct-1 [place] Referring In Womens suprvsn of 0-201 Krista. Provider: Elisha IBARRA, normal 7 [address], , Carina Mcc[place], second Center 700 [id number], [email or web address] Dr [facility] weeks 120, [place] tel:21 gestation of Emmanuel [facility] 120, [address] Emmanuel [place], [id number] [place], , [place]. [id number]. tel: tel:[phone] Katie Benitez Encounter for Sep-1 [place] Referring In Womens suprvsn of 4-201 Krista. Provider: Health FRED, normal 7 [address], , Carina Mcc[place], second Center 700 [id number], [email or web address] Dr [facility] weeks 120, Center tel: gestation of Emmanuel [facility] 120, [address] [place], [id number] [place], , [place]. [id number]. tel: tel: [phone] Katie Benitez Encounter for Jun- [place] Referring In Womens suprvsn of 7-201 Krista. Provider: Elisha IBARRA, normal 7 [address], , Carina [place]cc[place], second Center 700 [id number], [email or web address] Dr [facility] weeks 120, Center tel: gestation of Benitez [facility] 120, [address] Emmanuel [place], [id number] [place], , [place] [id number]. tel: tel: [phone] Katie Benitez Maternal care Jun- [place] Referring In Womens Ultrasound for excess 7-201 Krista. Provider: Elisha IBARRA, growth, 7 [address], second tri, Carina Mcc[place], unsp18 weeks Center 700 [id number], gestation of Dr [facility] 120, Center tel: Emmanuel [facility] 120, [address] Emmanuel [place], [id number] [place], , [place] [id number]. tel: tel: [phone] Katie Benitez Maternal care May- [place] Referring In Womens for excess 5-201 Krista. Provider: Elisha IBARRA, growth, 7 [address], second tri, Carina [place], unspEncounter Center 700 [id number], for suprvsn of Dr [facility] normal 120, Center tel: , Emmanuel [facility] 120, [address] second Emmanuel [place], [email or web address] [place], weeks , [place]. [id number]. gestation of tel: tel: [phone] Family History Family Member Diagnosis Age At [...] name Insurance type Covered democrat ID Authorization(s) [facility] [id number] [employer] [place] [employer] [place] [id number] [facility] [id number] [employer] [place] [employer] - Medicaid [place] [id number] [facility] [id number] [employer] [place] [employer] - Medicaid [place] [id number] Social History Type Description Quantity Date Captured Alcohol Use Details No Caffeine Use Details Unknown Tobacco Use Status Smoking Status Former smoker Vital Signs Date / Height Weight BMI Pulse Blood Temperature Respiratory Body Head BMI Time: Rate Pressure Rate Surface Circumference percentile Area 157.90 28.8 126/79 -2017 lbs 8 mm[Hg] 11:18 kg/m AM eter (2) Chief Complaint And Reason For Visit Unknown Chief Complaint And Reason For Visit Reason For Referral Reason For Referral Unknown Plan Of Care Date Type Action Status Appointment Nathalie Arango BOOKED Future Order: Radiology Order Complete OB Ultrasound > 14 Ordered Weeks (50281) Date Type Problem Goal Intervention Status Start [...]
--- OUTSIDE RECORDS SUMMARY | 2017-11-30 06:16 | External Medical Summary | Summary of Care ---
:1995 Author Name Chuy SHAW [facility] Address [address] Unavailable [place], [place] [phone] Care Team Providers Name Role Phone Ander [...] Administered on:16-Nov-2008 Influenza Administered on:28-Sep-2012 Lot #: [id number] Tdap (Adacel) Administered on:14-Feb-2013 Lot #: [id number] Social History Name Dates Details Smoking StatusUnknown [...]
[2017-11-30] MEDS ORDERED: ONDANSETRON 4 MG/2 ML INJECTION IVP PRN (06:43)
[2017-11-30] MEDS ORDERED: NALOXONE 0.4 MG/ML INJECTION IVP PRN (06:43)
[2017-11-30] MEDS ORDERED: ROPIVACAINE 1% 10MG/ML INJ 200 MG, SUFentanil 50 MCG in NS 100 ML EPI PRN (06:43)
[2017-11-30] MEDS ORDERED: DiphenhydrAMINE 50 MG/ML INJECTION IVP PRN (06:43)
[2017-11-30 06:44] VITALS: BMI 30.5
--- NOTE | 2017-11-30 07:11 | Anesthesia Preoperative Report ---
Anesthesia Epidural/Spinal Rec - Date and Time Date: 11/30/17 Preoperative Diagnosis: SROM Procedure: Labor Epidural Plan: Epidural - Vital Signs Vital Signs: Respiratory Rate 22 11/30/17 06:23 /Para: P:1 Heart Rate: 145 - Medictaions & Allergies Inpatient Medications: Current Medications Acetaminophen (Tylenol) 500 - 1,000 mg PO Q4H PRN PRN Reason: Pain Al Hydroxide/Mg Hydroxide (Maalox Plus) 30 ml PO Q3H PRN PRN Reason: Indigestion Calcium Carbonate (Tums) 500 - 1,000 mg PO Q2H PRN PRN Reason: Indigestion Carboprost Tromethamine (Hemabate) 250 mcg IM O PRN PRN Reason: .Downtime Diphenhydramine HCl (Benadryl) 25 - 50 mg IVP Q3H PRN PRN Reason: Itching Lactated Ringer's (Lactated Ringers) 1,000 mls @ 999 mls/hr IV .Q1H1M PRN Last Admin: 11/30/17 06:46 Dose: 999 mls/hr Ropivacaine 200 mg/ Sufentanil Citrate 50 mcg/ Sodium Chloride 121 mls @ 0 mls/ hr EPI PRN PRN; As Directed PRN Reason: Protocol Lidocaine HCl (Xylocaine-Mpf 1% Vial) 0.2 mg ID O PRN PRN Reason: IV Start Methylergonovine Maleate (Methergine) 0.2 mg IM O PRN Misoprostol (Cytotec) [address] ONCE PRN Naloxone HCl (Narcan) 0.1 mg IVP Q2M PRN PRN Reason: Respiratory distress Ondansetron HCl (Zofran) 4 mg IVP Q6H PRN PRN Reason: Nausea &/or vomiting Allergies/Adverse Reactions: Allergies Allergy/AdvReac Type Severity Reaction Status Date / Time No Known Allergies Allergy Verified 11/26/17 11:19 - Home Medications Home Medications: Home Medications Medication Instructions Recorded Confirmed Type Vitamins 11/26/17 History Tylenol 11/26/17 History - Medical History Respiratory: DENIES: Asthma, Bronchitis, Chronic Obstructive Pulmonary Disease (COPD), Dyspnea, Orthopnea, Pulmonary Embolism, Pneumonia, Upper Respiratory Infection, Pulmonary Edema, Sleep Apnea, Tuberculosis, Other Cardiovascular: DENIES: Abnormal EKG, Angina, Arrhythmia, Congestive Heart Failure, Coronary Artery Disease, Heart Murmur, Hypertension, Hypotension, High Cholesterol, Myocardial Infarction, Rheumatic Fever, Valvular Heart Disease, Other Gastrointestional: DENIES: Obstructive Bowel, Hepatitis, Cirrhosis, Nausea or Vomiting Present, Gastroesophageal Reflux Disease, Gastrointestinal Bleeding, Hiatal Hernia, Ulcer , Morbid Obesity, Other Neuro/Musculoskeletal: Reports: Back Problems (back pain) Renal/Endocrine: DENIES: Diabetes Mellitus Type 1, Diabetes Mellitus Type 2, Renal Failure, Dialysis, Thyroid Disease, Weight Loss, Weight Gain, Other Other History: Reports: Now - Surgical History Reproductive Surgery/Treatment: DENIES: Section Anesthesia Reactions: None Hx Family Anesthesia Reaction: No History of Motion Sickness: No - Social History Smoking Status: Never smoker Substance Use Type: does not use - Pertinent Findings Lab Data: CBC and BMP 11/30/17 06:37 EKG Rhythm: Normal Sinus Rhythm, Sinus Tachycardia - Physical Exam Respiratory Exam: lungs clear, bilateral breath sounds equal Cardiovascular Exam: regular rate and rhythm, no murmur - Airway Assessment Mallampati Score: II TMD: 3 Fingerbreadths Neck Extension: good Overall Assessment: may be difficult intubation - ASA ASA Score: 2 - Discussion Discussion: Discussed risks/options/alternatives of anesthesia and questions answered. Patient consents. Nursing pain assessment noted. Anesthesia Discussion: family member Attestation Statement: Prior to the delivery of any anesthetic medication, I examined the patient, developed the plan, obtained the patient's consent and discussed the risk and benefits of the procedure with the patient/guardian.
--- NOTE | 2017-11-30 07:41 | OB/GYN Procedure Note ---
Delivery date: 11/30/17 Procedure: Intrapartal events: Precipitous Labor < 3 hours Induction method: none Delivery monitor: external FHT, external uterine Route of delivery: Episiotomy description: None Laceration description: Perineal - 1st Degree Anesthesia type: None Disposition: floor - Bison Baby 1 presentation: Vertex Placenta delivery description: Spontaneous cord vessel description: 3 Vessels at 1 minute: 8 at 5 minutes: 9
[2017-11-30] MEDS ORDERED: OXYTOCIN DRIP 30 UNIT/500 ML ML IV PRN (08:19)
[2017-11-30] MEDS ORDERED: HYDROCODONE/APAP 5mg/325mg TABLET PO PRN (08:19)
[2017-11-30] MEDS ORDERED: DiphenhydrAMINE 25 MG CAPSULE PO PRN (08:19)
[2017-11-30] MEDS ORDERED: HYDROCORTISONE 2.5% CREAM 30gm RECTALLY PRN (08:19)
[2017-11-30] MEDS ORDERED: OXYTOCIN DRIP 30 UNIT/500 ML ML IV SCH (08:19)
[2017-11-30] MEDS: IBUPROFEN 800 MG TABLET PO PRN ×2 (09:28→17:28)
[2017-11-30] MEDS: DOCUSATE CALCIUM 240 MG CAPSULE PO SCH (16:39)
[2017-12-01] MEDS: IBUPROFEN 800 MG TABLET PO PRN ×3 (03:46→21:07)
--- NOTE | 2017-12-01 08:25 | OB/GYN Progress Note ---
OB-PP Progress Note - General PPD1 Maternal Group B Strep: Negative Maternal blood type: O+ Maternal Rubella Status: Immune - Subjective Date: 12/01/17 Lochia: Minimal Pain: controlled Voiding: voiding - Objective Vital Signs: Last Vital Signs Temp 98.1 F 12/01/17 04:58 Pulse 68 12/01/17 04:58 Resp 15 12/01/17 04:58 BP 119/60 12/01/17 04:58 Pulse Ox 100 12/01/17 04:58 General: alert and oriented - Assessment Assessment: - Plan Plan: routine care She desires DC tomorrow.
--- NOTE | 2017-12-01 09:03 | Labor and Delivery Note ---
DATE OF DELIVERY 11/30/2017 DELIVERY NOTE Nathalie originally presented to Labor & Delivery on the morning of 11/30/2017 with complaints of rupture of membranes and contractions. Upon triage she was noted to be grossly ruptured, 5 cm, 100% and 0 station. Through her history she was noted to be GBS negative and no other complications during this . She was placed into a Labor & Delivery suite. Anesthesia was called for epidural and state game warden was en route. Patient continued to progress through labor quickly and the epidural procedure was aborted secondary to patient not being able to hold still. She was noted to be complete and +2 at this time and was offered a pudendal block. Unfortunately, the patient continued to progress quickly and delivered without any anesthesia or difficulties. Delivery was a normal spontaneous vaginal delivery of a live male infant named Kimberly in the OA position over intact perineum without epidural anesthesia. There was no meconium noted and no nuchal cord. There was spontaneous delivery of the placenta with a three-vessel cord. She had a hematostatic first-degree laceration of the perineum that was not repaired and two hemostatic first- degree bilateral periurethral lacerations that were not repaired. Estimated blood loss was 400 cc. Patient did receive Pitocin after delivery of the placenta to help with the third stage of labor. [facility]
[2017-12-01] MEDS: DOCUSATE CALCIUM 240 MG CAPSULE PO SCH (12:57)
[2017-12-02] MEDS: IBUPROFEN 800 MG TABLET PO PRN (05:41)
[2017-12-02] MEDS: DOCUSATE CALCIUM 240 MG CAPSULE PO SCH ×2 (05:41→10:03)
[2017-12-02 05:58] VITALS: BP 119/67; PULSE 72; RESP 12; TEMP 97.9; O2SAT 98
--- NOTE | 2017-12-02 08:41 | OB/GYN Progress Note ---
OB-PP Progress Note - General PPD2 Maternal Group B Strep: Negative Maternal blood type: O+ Maternal Rubella Status: Immune - Subjective Date: 12/02/17 Lochia: Minimal Pain: controlled Voiding: voiding - Objective Vital Signs: Last Vital Signs Temp 97.9 F 12/02/17 05:15 Pulse 72 12/02/17 05:15 Resp 12 12/02/17 05:15 BP 119/67 12/02/17 05:15 Pulse Ox 98 12/02/17 05:15 Urine Output: good General: alert and oriented - Assessment Assessment: - Plan Plan: routine care, discharge home, continue PNV
== END 2017-12-02 09:25 | disposition home or self-care (01) | DRG 775 ==
LOC: MC 06:05 → OBOBS 06:05 → MC 06:15
PROVIDERS: ADMIT Obstetrics & Gynecology; ATTEND Obstetrics & Gynecology